=== PATIENT | female | born 1960 | race African-American/Black ===

== ENCOUNTER 2024-06-01 18:01 | Emergency (ER) | payer MEDICARE ==
[~2024-06-01 18:01] MED LIST: Iopamidol 370 76% 100 ML VIAL ONE
[2024-06-01 18:55] LABS: #Basophils 0.01 10x3/uL (0.0-0.2); #Eosinphils 0.06 10x3/uL (0.0-0.5); #Monocytes 0.81 10x3/uL (0.0-1.1); #Neutrophils 4.94 10x3/uL (1.5-8.4); %Basophils 0.1 % (0.0-2.0); %Eosinophils 0.9 % (0.0-6.0); %Lymphocytes 12.6 % (18.0-47.0); %Monocytes 12.1 % (0.0-10.0); %Neutrophils 74.2 % (40.0-75.0); Hematocrit 22.7 % (34.9-44.5); Hemoglobin 7.3 g/dL (12.0-15.5); Mean Corpuscular HGB CONC 32.2 g/dL (32.0-36.0); Mean Corpuscular Volume 93.4 fL (81.6-98.3); Mean Platelet Volume 8.9 fL (7.4-10.4); Platelet Count 278 10x3/uL (150-450); RBC Distribution Width 18.1 % (11.5-14.5); Red Blood Cell (RBC) Count 2.43 10x6/uL (3.90-5.03); White Blood Cell (WBC) Count 6.7 10x3/uL (3.5-10.5)
[2024-06-01 19:03] LABS: PTT 27.3 sec (22.0-33.0); Prothrombin Time 11.1 sec (9.5-12.1)
[2024-06-01 19:06] LABS: ALT (SGPT) 16 U/L (8-55); AST (SGOT) 23 U/L (5-34); Albumin 3.1 g/dL (3.4-4.8); Alkaline Phosphatase 128 U/L (40-110); Anion Gap 15 mmol/L (10-20); BUN (Urea Nitrogen) 38 mg/dL (9.8-20.1); Bilirubin, Total 0.2 mg/dL (0.2-1.2); Calc. Creatinine Clearance 0 mL/min (70-130); Calcium 9.8 mg/dL (7.8-10.44); Carbon Dioxide 24 mmol/L (23-31); Chloride 101 mmol/L (98-107); Estimated GFR 69; Glucose 106 mg/dL (80-115); Lipase 33 U/L (8-78); Protein, Total 7.1 g/dL (5.8-8.1); Sodium 135 mmol/L (136-145)
[2024-06-01 19:12] LABS: Troponin I Less than 0.010 ng/mL (< 0.028)
[2024-06-01] MEDS ORDERED: HYDROcodone/Acetaminophen 5/325 mg Tablet ONE (21:51)
== END 2024-06-01 23:42 | disposition home or self-care (01) ==
LOC: CSHERS 18:01
DX: R06.02 Shortness of breath (principal); C80.1 Malignant (primary) neoplasm, unspecified; G89.4 Chronic pain syndrome; I10 Essential (primary) hypertension; E11.9 Type 2 diabetes mellitus without complications; F17.210 Nicotine dependence, cigarettes, uncomplicated; Z85.038 Personal history of other malignant neoplasm of large intestine; Z85.818 Personal history of malignant neoplasm of other sites of lip, oral cavity, and pharynx
CPT/HCPCS: 36415; 70450; 71275; 80053; 83690; 83880; 84484; 85025; 85610; 85730; 93005; Q9967

== ENCOUNTER 2025-08-16 07:42 | Inpatient (IN) | payer MEDICARE, MEDICAID ==
[2025-08-16 11:45] VITALS: BMI 15.5
[2025-08-17 04:00] LABS: #Basophils 0.05 10x3/uL (0.0-0.2); #Eosinophils 0.05 10x3/uL (0.0-0.5); #Monocytes 0.88 10x3/uL (0.0-1.1); #Neutrophils 15.07 10x3/uL (1.5-8.4); %Basophils 0.3 % (0.0-2.0); %Eosinophils 0.3 % (0.0-6.0); %Lymphocytes 9.5 % (18.0-47.0); %Monocytes 4.9 % (0.0-10.0); %Neutrophils 84.6 % (40.0-75.0); Hematocrit 25.5 % (34.9-44.5); Hemoglobin 8.4 g/dL (12.0-15.5); Mean Corpuscular Hemoglobin 28.1 pg (27.0-33.0); Mean Corpuscular Volume 85.3 fL (81.6-98.3); Platelet Count 386 10x3/uL (150-450); Red Blood Cell (RBC) Count 2.99 10x6/uL (3.90-5.03); White Blood Cell (WBC) Count 17.83 10x3/uL (3.5-10.5)
[2025-08-17 04:16] LABS: ALT (SGPT) 7 U/L (Less than 34); AST (SGOT) 16 U/L (11-34); Albumin 2.7 g/dL (3.1-4.5); Alkaline Phosphatase 64 U/L (40-110); Anion Gap 12 mmol/L (10-20); BUN (Urea Nitrogen) 32 mg/dL (9.8-20.1); Bilirubin, Total 0.2 mg/dL (0.3-1.2); Calc. Creatinine Clearance 33 mL/min (70-130); Calcium 9.1 mg/dL (7.8-10.44); Carbon Dioxide 23 mmol/L (23-31); Chloride 105 mmol/L (98-107); Globulin 4.5 g/dL (2.4-3.5); Glucose 97 mg/dL (80-115); Potassium 4.0 mmol/L (3.5-5.1); Sodium 136 mmol/L (136-145)
[2025-08-17] MEDS: Enoxaparin 30 MG (0.3 mL) SYRINGE SC SCH (08:01)
[2025-08-17] MEDS: PNEUMOC 20-VAL CONJ-DIP CRM/PF 0.5 ML SYRINGE IM ONE (10:01)
[2025-08-17] MEDS: FLU (Fluad Triv) 25-26 (65UP)PF 45 MCG/0.5 ML Syringe IM ONE (10:01)
[2025-08-17] MEDS: cefTRIAXone\\ROCEPHIN 1 GM in Sodium Chloride 0.9% 100 ML IVPB SCH (15:07)
[2025-08-17] MEDS: Guaifenesin DM 100-10/5 ML UDCUP PO PRN (15:47)
[2025-08-17] MEDS: ADMIXTURE FEE IVPB SCH (15:47)
[2025-08-17] MEDS: SODIUM CHLORIDE IVPB SCH (15:47)
[2025-08-17] MEDS: AZITHROMYCIN IVPB SCH (15:47)
[2025-08-17] MEDS: Melatonin 3 MG TAB PO PRN (21:12)
[2025-08-18 04:20] LABS: ALT (SGPT) 8 U/L (Less than 34); AST (SGOT) 17 U/L (11-34); Albumin 2.5 g/dL (3.1-4.5); Alkaline Phosphatase 62 U/L (40-110); Anion Gap 13 mmol/L (10-20); BUN (Urea Nitrogen) 31 mg/dL (9.8-20.1); Bilirubin, Total 0.2 mg/dL (0.3-1.2); Calc. Creatinine Clearance 38 mL/min (70-130); Calcium 9.2 mg/dL (7.8-10.44); Carbon Dioxide 22 mmol/L (23-31); Chloride 105 mmol/L (98-107); Globulin 4.6 g/dL (2.4-3.5); Glucose 81 mg/dL (80-115); Potassium 3.9 mmol/L (3.5-5.1); Sodium 136 mmol/L (136-145)
[2025-08-18 08:32] LABS: #Basophils 0.04 10x3/uL (0.0-0.2); #Eosinophils 0.22 10x3/uL (0.0-0.5); #Monocytes 0.67 10x3/uL (0.0-1.1); #Neutrophils 7.83 10x3/uL (1.5-8.4); %Basophils 0.4 % (0.0-2.0); %Eosinophils 2.2 % (0.0-6.0); %Lymphocytes 12.7 % (18.0-47.0); %Monocytes 6.7 % (0.0-10.0); %Neutrophils 77.7 % (40.0-75.0); Hematocrit 27.3 % (34.9-44.5); Hemoglobin 9.0 g/dL (12.0-15.5); Mean Corpuscular Hemoglobin 28.0 pg (27.0-33.0); Mean Corpuscular Volume 85.0 fL (81.6-98.3); Platelet Count 415 10x3/uL (150-450); Red Blood Cell (RBC) Count 3.21 10x6/uL (3.90-5.03); White Blood Cell (WBC) Count 10.07 10x3/uL (3.5-10.5)
[2025-08-18 12:58] VITALS: BMI 15.5
[2025-08-18] MEDS ORDERED: Melatonin 3 MG TAB PER TUBE PRN (16:04)
[2025-08-19 05:11] LABS: #Basophils 0.03 10x3/uL (0.0-0.2); #Eosinophils 0.31 10x3/uL (0.0-0.5); #Monocytes 0.65 10x3/uL (0.0-1.1); #Neutrophils 5.17 10x3/uL (1.5-8.4); %Basophils 0.4 % (0.0-2.0); %Eosinophils 4.0 % (0.0-6.0); %Lymphocytes 20.8 % (18.0-47.0); %Monocytes 8.3 % (0.0-10.0); %Neutrophils 66.1 % (40.0-75.0); Hematocrit 28.8 % (34.9-44.5); Hemoglobin 9.5 g/dL (12.0-15.5); Mean Corpuscular Hemoglobin 28.2 pg (27.0-33.0); Mean Corpuscular Volume 85.5 fL (81.6-98.3); Platelet Count 416 10x3/uL (150-450); Red Blood Cell (RBC) Count 3.37 10x6/uL (3.90-5.03); White Blood Cell (WBC) Count 7.82 10x3/uL (3.5-10.5)
[2025-08-19 05:25] LABS: ALT (SGPT) 8 U/L (Less than 34); AST (SGOT) 15 U/L (11-34); Albumin 2.7 g/dL (3.1-4.5); Alkaline Phosphatase 67 U/L (40-110); Anion Gap 12 mmol/L (10-20); BUN (Urea Nitrogen) 27 mg/dL (9.8-20.1); Bilirubin, Total 0.1 mg/dL (0.3-1.2); Calc. Creatinine Clearance 43 mL/min (70-130); Calcium 9.4 mg/dL (7.8-10.44); Carbon Dioxide 24 mmol/L (23-31); Chloride 103 mmol/L (98-107); Globulin 4.5 g/dL (2.4-3.5); Glucose 86 mg/dL (80-115); Potassium 4.1 mmol/L (3.5-5.1); Sodium 135 mmol/L (136-145)
[2025-08-19] MEDS: Guaifenesin DM 100-10/5 ML UDCUP PER TUBE PRN (13:54)
[2025-08-20 05:51] LABS: #Basophils 0.04 10x3/uL (0.0-0.2); #Eosinophils 0.27 10x3/uL (0.0-0.5); #Monocytes 0.65 10x3/uL (0.0-1.1); #Neutrophils 2.96 10x3/uL (1.5-8.4); %Basophils 0.7 % (0.0-2.0); %Eosinophils 5.0 % (0.0-6.0); %Lymphocytes 26.4 % (18.0-47.0); %Monocytes 12.1 % (0.0-10.0); %Neutrophils 55.1 % (40.0-75.0); Hematocrit 27.0 % (34.9-44.5); Hemoglobin 8.8 g/dL (12.0-15.5); Mean Corpuscular Hemoglobin 27.8 pg (27.0-33.0); Mean Corpuscular Volume 85.2 fL (81.6-98.3); Platelet Count 432 10x3/uL (150-450); Red Blood Cell (RBC) Count 3.17 10x6/uL (3.90-5.03); White Blood Cell (WBC) Count 5.38 10x3/uL (3.5-10.5)
[2025-08-20] MEDS: Acetaminophen 325 MG TAB PER TUBE PRN (10:01)
[2025-08-20 12:31] VITALS: BP 102/75; TEMP 98
== END 2025-08-20 14:19 | disposition home or self-care (01) | DRG 871 ==
LOC: CSHTELE 08:54 → OBSVTOIN 12:53 → CSHICU 08-18 16:40 → CSHTELE 08-19 21:38
PROVIDERS: ADMIT Family Medicine; ATTEND Family Medicine
PROC: 3E0234Z Introduction of Serum, Toxoid and Vaccine into Muscle, Percutaneous Approach (ICD-10-PCS; principal; 2025-08-16)
PROC: 3E03329 Introduction of Other Anti-infective into Peripheral Vein, Percutaneous Approach (ICD-10-PCS; 2025-08-17)
PROC: 0DH67UZ Insertion of Feeding Device into Stomach, Via Natural or Artificial Opening (ICD-10-PCS; 2025-08-17)
PROC: 3E0G76Z Introduction of Nutritional Substance into Upper GI, Via Natural or Artificial Opening (ICD-10-PCS; 2025-08-17)
DX: A41.9 Sepsis, unspecified organism (principal); E43 Unspecified severe protein-calorie malnutrition; J18.9 Pneumonia, unspecified organism; R64 Cachexia; C14.0 Malignant neoplasm of pharynx, unspecified; I10 Essential (primary) hypertension; D63.0 Anemia in neoplastic disease; Z23 Encounter for immunization
CPT/HCPCS: 36415; 36416; 71046; 80053; 85025; 94760; 94762; J0456; J0696; J1650; J2270; J7030; Q0162